=== PATIENT | male | born 2005 | race Caucasian/White ===

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

== ENCOUNTER → 2024-07-21 | Outpatient (CLI) | payer OTHER ==
--- NOTE | 2024-07-21 12:56 | XR ---
EXAMINATION TYPE: XR chest 2V DATE OF EXAM: 07/21/2024 12:38 PM COMPARISON: None CLINICAL INDICATION: Male, 19 years old with history of R93.2 ABNORMAL FINDINGS ON DX IMAGING OF LIVE R; [facility] TECHNIQUE: XR chest 2V Frontal and lateral views of the chest. FINDINGS: Lungs/Pleura: There is no evidence of pleural effusion, focal consolidation, or pneumothorax. Pulmonary vascularity: Unremarkable. Heart/mediastinum: Cardiomediastinal silhouette is unremarkable. Musculoskeletal: No acute osseous pathology. IMPRESSION: No acute cardiopulmonary disease/process. [facility], , 07/21/2024 12:53 PM
--- NOTE | 2024-07-21 12:59 | XR ---
EXAMINATION TYPE: XR thoracic spine complete DATE OF EXAM: 07/21/2024 12:38 PM COMPARISON: None CLINICAL INDICATION: Male, 19 years old with history of R93.2 ABNORMAL FINDINGS ON DX IMAGING OF LIVE R; [facility] TECHNIQUE: XR thoracic spine complete views of the spine in Frontal and lateral projections. FINDINGS: No evidence of acute fracture. There is no evidence of disk space narrowing or loss of vertebral bod y height. There is normal alignment of the thoracic vertebral bodies. IMPRESSION: No acute osseous pathology. [facility], , 07/21/2024 12:56 PM
== END | disposition home or self-care (01) ==
LOC: RADXRMAIN 12:24
PROVIDERS: ATTEND Emergency Medicine
DX: S23.3XXA Sprain of ligaments of thoracic spine, initial encounter (principal); S29.002A Unspecified injury of muscle and tendon of back wall of thorax, initial encounter; R93.2 Abnormal findings on diagnostic imaging of liver and biliary tract; X58.XXXA Exposure to other specified factors, initial encounter
CPT/HCPCS: 71046; 72072

== ENCOUNTER → 2024-12-16 | Outpatient (CLI) | payer OTHER ==
--- NOTE | 2024-12-16 12:32 | XR ---
EXAMINATION TYPE: XR wrist complete LT DATE OF EXAM: 12/16/2024 12:05 PM COMPARISON: 07/30/2019. CLINICAL INDICATION: Male, 19 years old with history of UNSPECIFIED SPRAIN OF LEFT WRIST, INITIAL ENC OUNTER; [facility], pain TECHNIQUE: XR wrist complete LT; examined in the Frontal, navicular, lateral, and oblique. FINDINGS: No acute osseous pathology, joint dislocation, or joint effusion. No evidence of any soft tissue swelling is seen. IMPRESSION: No acute osseous pathology. [facility], , 12/16/2024 12:30 PM
== END | disposition home or self-care (01) ==
LOC: RADXRMAIN 11:51
PROVIDERS: ATTEND Emergency Medicine
DX: S63.502A Unspecified sprain of left wrist, initial encounter (principal)